=== PATIENT | female | born 1995 | race Two or more races ===

== ENCOUNTER 2021-11-10 19:40 | Emergency (ER) | payer MEDICAID ==
[~2021-11-10] VITALS: Ht 157.5 cm; Wt 68.2 kg
[2021-11-10 19:41] VITALS: BP 123/78
[2021-11-10] MEDS ORDERED: FAMOTIDINE (10MG/ML) 2ML VL IV ONE (20:00)
[2021-11-10] MEDS ORDERED: DexAMETHasone SOD PHOS 10MG/1ML VIAL INJ IV ONE (20:00)
[2021-11-10] MEDS ORDERED: diphenhdrAMINE HCL 50 MG/1 ML VL IV ONE (20:00)
== END 2021-11-10 20:42 | disposition left against medical advice (07) ==
LOC: ER 19:40
DX: L50.9 Urticaria, unspecified (principal); Z53.21 Procedure and treatment not carried out due to patient leaving prior to being seen by health care provider
CPT/HCPCS: J1100; J1200; J3490

== ENCOUNTER 2022-02-26 09:45 | Emergency (ER) | payer MEDICAID ==
[~2022-02-26] VITALS: Ht 157.5 cm; Wt 70.0 kg
[2022-02-26 10:36] VITALS: BP 156/92
[2022-02-26] MEDS ORDERED: CIPR1SUS8 OT (10:53)
== END 2022-02-26 12:14 | disposition home or self-care (01) ==
LOC: ER 09:45
DX: S62.346A Nondisplaced fracture of base of fifth metacarpal bone, right hand, initial encounter for closed fracture (principal); H72.92 Unspecified perforation of tympanic membrane, left ear; Z79.899 Other long term (current) drug therapy; Y04.2XXA Assault by strike against or bumped into by another person, initial encounter; Y93.89 Activity, other specified; Y92.89 Other specified places as the place of occurrence of the external cause; Y99.8 Other external cause status
CPT/HCPCS: 29125; 73130

== ENCOUNTER 2022-06-10 06:08 | Emergency (ER) | payer MEDICAID ==
[~2022-06-10] VITALS: Ht 154.9 cm; Wt 75.0 kg
[~2022-06-10 06:08] MED LIST: CIPR1SUS8 OT
[2022-06-10] MEDS ORDERED: METOCLOPRAMIDE HCL 5MG/ml INJ 2ml VIAL IV ONE (06:45)
[2022-06-10] MEDS ORDERED: SODIUM CHLORIDE 0.9% 1,000 ML IV ONE (06:45)
[2022-06-10] MEDS ORDERED: ACETAMINOPHEN 325 MG TAB PO ONE (06:45)
[2022-06-10] MEDS ORDERED: CYCLOBENZAPRINE HCL 10 MG TAB PO ONE ×2 (06:45→13:15)
[2022-06-10 07:21] LABS: Eosinophils # (auto) 0 10 ^3/uL (0-0.8); Eosinophils % (auto) 0.2 % (0.0-7.0); Hemoglobin 10.4 g/dL (12.2-16.2); Mean Corpuscular Hgb Conc. 32.6 g/dL (32.0-36.0); Monocytes # (auto) 0.5 10 ^3/uL (0-1.3); Red Cell Distribution Width 19.8 % (11.8-14.3)
[2022-06-10 07:23] LABS: Basophils # (auto) 0 10 ^3/uL (0-0.2); Basophils % (auto) 0.6 % (0.0-2.0); Hematocrit 31.8 % (36.0-46.0); Lymphocytes % (auto) 12.8 % (10.0-50.0); Mean Corpuscular Hemoglobin 23.5 pg (28.0-32.0); Mean Corpuscular Volume 72.3 fL (80.0-100.0); Monocytes % (auto) 6.5 % (0.0-12.0); Neutrophils # (auto) 6.3 10 ^3/uL (1.6-8.6); Neutrophils % (auto) 79.9 % (37.0-80.0); Nucleated Red Blood Cells % 0.1 %; White Blood Cell 7.9 10^3/uL (4.4-10.8)
[2022-06-10 07:41] LABS: Albumin 3.3 g/dL (3.4-5.0); Calcium 8.3 mg/dL (8.5-10.1); Potassium 3.7 mmol/L (3.5-5.1)
[2022-06-10 07:46] LABS: BUN/Creatinine Ratio 12.3 (10.0-20.0); Bilirubin, Total 0.2 mg/dL (0.2-1.0)
[2022-06-10 08:25] LABS: Urine Bacteria FEW /hpf (None Seen); Urine Blood Negative /uL (Negative); Urine Hyaline Cast FEW /lpf (0 - 2); Urine Mucus FEW (None Seen); Urine Specific Gravity 1.025 (1.001-1.035); Urine WBC 4 /hpf (0 - 5)
[2022-06-10 08:35] LABS: Amphetamine Screen, Urine NEGATIVE (NEGATIVE); Barbiturate Scree,Urine NEGATIVE (NEGATIVE); Benzodiazephine Screen, Urine NEGATIVE (NEGATIVE); Cannabinoid Screen, Urine POSITIVE (NEGATIVE); Cocaine Screen, Urine NEGATIVE (NEGATIVE); Opiate Scree,Urine NEGATIVE (NEGATIVE); Phencyclidine Screen, Urine NEGATIVE (NEGATIVE)
[2022-06-10 13:00] VITALS: BP 92/36
[2022-06-10] MEDS ORDERED: ACET-1079 PO (15:41)
[2022-06-10] MEDS ORDERED: CYCL-839 PO (15:41)
== END 2022-06-10 17:42 | disposition home or self-care (01) ==
LOC: ER 06:08 → EEVIPCON 06:08 → ER 16:30
DX: S01.01XA Laceration without foreign body of scalp, initial encounter (principal); O26.891 Other specified pregnancy related conditions, first trimester; R10.2 Pelvic and perineal pain; Z3A.09 9 weeks gestation of pregnancy; Y04.2XXA Assault by strike against or bumped into by another person, initial encounter; Y93.89 Activity, other specified; Y92.89 Other specified places as the place of occurrence of the external cause; Y99.8 Other external cause status
CPT/HCPCS: 36415; 76801; 80053; 80307; 81001; 81025; 84702; 85025; 86901; 96361; 96374; 99285; J2765; J7030

== ENCOUNTER 2022-08-18 12:34 | Emergency (ER) | payer MEDICAID ==
[~2022-08-18 12:34] MED LIST changes: +ACET-1079 PO; +CYCL-839 PO
== END 2022-08-18 14:02 | disposition left against medical advice (07) ==
LOC: ER 12:34
DX: R10.9 Unspecified abdominal pain (principal); Z53.21 Procedure and treatment not carried out due to patient leaving prior to being seen by health care provider

== ENCOUNTER 2022-11-13 22:15 | Observation (INO) | payer MEDICAID ==
[~2022-11-13] VITALS: Ht 154.9 cm; Wt 76.7 kg
[2022-11-13] MEDS ORDERED: PREN27TA7 OR (22:55)
[2022-11-13] MEDS ORDERED: ACETAMINOPHEN 325 MG TAB PO PRN (23:45)
[2022-11-13] MEDS ORDERED: TERBUTALINE SULFATE 1 MG/ML 1ML VIAL SC SCH (23:45)
[2022-11-13] MEDS ORDERED: LACTATED RINGER'S 1,000 ML IV SCH (23:45)
[2022-11-13] MEDS ORDERED: TERBUTALINE SULFATE 1 MG/ML 1ML VIAL SC ONE (23:50)
[2022-11-14] MEDS ORDERED: LACTATED RINGER'S 1,000 ML IV ONE (00:45)
[2022-11-14 02:36] LABS: Alanine Aminotransferase 20 U/L (7-40); Albumin 3.7 g/dL (3.2-4.8); Alkaline Phosphatase 100 U/L (46-116); Anion Gap 9.1 (5-15); Aspartate Aminotransferase 13 U/L (13-40); BUN/Creatinine Ratio 9.7 (10.0-20.0); Blood Urea Nitrogen 6 mg/dL (9-23); Calcium 8.3 mg/dL (8.7-10.4); Carbon Dioxide 20.9 mmol/L (20-30); Chloride 108 mmol/L (98-107); Glucose 123 mg/dL (74-106); Potassium 3.4 mmol/L (3.5-5.1); Sodium 138 mmol/L (136-145); Total Protein 5.8 g/dL (5.7-8.2)
[2022-11-14 02:42] LABS: Basophils # (auto) 0 10 ^3/uL (0-0.2); Basophils % (auto) 0.2 % (0.0-2.0); Eosinophils # (auto) 0 10 ^3/uL (0-0.8); Eosinophils % (auto) 0.3 % (0.0-7.0); Hematocrit 29.5 % (36.0-46.0); Hemoglobin 9.5 g/dL (12.2-16.2); Lymphocytes # (auto) 1.5 10 ^3/uL (0.4-5.4); Lymphocytes % (auto) 18.9 % (10.0-50.0); Mean Corpuscular Hemoglobin 24.3 pg (28.0-32.0); Mean Corpuscular Hgb Conc. 32.2 g/dL (32.0-36.0); Mean Corpuscular Volume 75.3 fL (80.0-100.0); Monocytes # (auto) 0.5 10 ^3/uL (0-1.3); Monocytes % (auto) 6.4 % (0.0-12.0); Neutrophils # (auto) 5.9 10 ^3/uL (1.6-8.6); Neutrophils % (auto) 74.2 % (37.0-80.0); Nucleated Red Blood Cells % 0.1 %; Red Blood Cells 3.92 10^6/uL (4.0-5.20); Red Cell Distribution Width 18.1 % (11.8-14.3); White Blood Cell 7.9 10^3/uL (4.4-10.8)
[2022-11-14 02:48] LABS: INR 0.97 (0.9-1.15); Partial Thromboplastin Time 26.7 SEC (24.5-34.5); Prothrombin Time 10.2 sec (9.3-11.8)
[2022-11-14 02:59] LABS: Bilirubin, Total 0.3 mg/dL (0.2-1.0)
[2022-11-14 04:10] LABS: Amphetamine Screen, Urine Neg (NEGATIVE); Barbiturate Scree,Urine Neg (NEGATIVE); Benzodiazephine Screen, Urine Neg (NEGATIVE); Cocaine Screen, Urine Neg (NEGATIVE); Opiate Scree,Urine Neg (NEGATIVE); Phencyclidine Screen, Urine Neg (NEGATIVE)
[2022-11-14 04:11] LABS: Cannabinoid Screen, Urine Neg (NEGATIVE)
[2022-11-14 04:17] LABS: Urine Amorphous Crystal FEW /hpf (None Seen); Urine Bacteria MANY /hpf (None Seen); Urine Blood Negative /uL (Negative); Urine Clarity HAZY (Clear); Urine Color Yellow (Yellow); Urine Mucus FEW (None Seen); Urine Protein, UAD 2+ (Negative); Urine Specific Gravity 1.037 (1.001-1.035); Urine WBC 3 /hpf (0 - 5)
[2022-11-15 08:06] LABS: RPR Non Reactive (Non Reactive)
[2022-11-16 23:06] LABS: Treponema pallidum Ab (FTA-Ab) Non Reactive (Non Reactive)
== END 2022-11-14 04:15 | disposition left against medical advice (07) ==
LOC: ER 22:15 → LDRP 22:30
PROVIDERS: ADMIT Obstetrics & Gynecology; ATTEND Obstetrics & Gynecology
DX: O26.893 Other specified pregnancy related conditions, third trimester (principal); R10.9 Unspecified abdominal pain; Z3A.33 33 weeks gestation of pregnancy; W19.XXXA Unspecified fall, initial encounter; Y93.89 Activity, other specified; Y92.89 Other specified places as the place of occurrence of the external cause; Y99.8 Other external cause status
CPT/HCPCS: 36415; 59025; 76805; 76815; 80053; 80307; 81001; 81002; 85025; 85610; 85730; 86592; 86850; 86900; 86901; 94760; 96360; 96361; 96372; G0378; J3105

== ENCOUNTER 2022-11-14 04:17 | Emergency (ER) | payer SELFPAY ==
[~2022-11-14] VITALS: Ht 154.9 cm; Wt 63.6 kg
[~2022-11-14 04:17] MED LIST changes: +PREN27TA7 OR
[2022-11-14 04:35] VITALS: BP 118/72; TEMP 98.3
[2022-11-14 05:08] VITALS: PULSE 76; RESP 18; O2SAT 99
== END 2022-11-14 04:53 | disposition home or self-care (01) ==
LOC: ER 04:17
DX: O26.893 Other specified pregnancy related conditions, third trimester (principal); S93.505A Unspecified sprain of left lesser toe(s), initial encounter; Z79.899 Other long term (current) drug therapy; Z3A.33 33 weeks gestation of pregnancy; W01.0XXA Fall on same level from slipping, tripping and stumbling without subsequent striking against object, initial encounter; Y93.89 Activity, other specified; Y92.89 Other specified places as the place of occurrence of the external cause; Y99.8 Other external cause status

== ENCOUNTER 2023-04-07 23:13 | Emergency (ER) | payer MEDICAID ==
[~2023-04-07] VITALS: Ht 157.5 cm; Wt 73.2 kg
[2023-04-08] MEDS ORDERED: FAMOTIDINE 20 MG TAB PO ONE (00:30)
[2023-04-08] MEDS ORDERED: DexAMETHasone SOD PHOS 10MG/1ML VIAL INJ IM ONE (00:30)
[2023-04-08] MEDS ORDERED: diphenhdrAMINE HCL 50 MG/1 ML VL IM ONE (00:30)
[2023-04-08] MEDS ORDERED: FAMO20TA10 PO (00:58)
[2023-04-08] MEDS ORDERED: PRED20TA2 PO (00:58)
[2023-04-08] MEDS ORDERED: DIPH25TA54 PO (00:58)
[2023-04-08 01:05] VITALS: BP 115/65; PULSE 62; RESP 16; TEMP 97.6; O2SAT 98
== END 2023-04-08 01:10 | disposition home or self-care (01) ==
LOC: ER 23:13
DX: L50.0 Allergic urticaria (principal); Z79.899 Other long term (current) drug therapy
CPT/HCPCS: 96372; 99284; J1100; J1200

== ENCOUNTER 2023-10-14 12:00 | Emergency (ER) | payer MEDICAID ==
[~2023-10-14] VITALS: Ht 154.9 cm; Wt 74.8 kg
[~2023-10-14 12:00] MED LIST changes: +DIPH25TA54 PO; +FAMO20TA10 PO; +PRED20TA2 PO
[2023-10-14 13:05] VITALS: BP 111/66; PULSE 97; RESP 18; TEMP 99.2; O2SAT 97
[2023-10-14] MEDS: KETOROLAC TROMETH 30 MG/ML 1ML VIAL IM ONE (13:55)
[2023-10-14] MEDS: DexAMETHasone SOD PHOS 10MG/1ML VIAL INJ IM ONE (13:55)
[2023-10-14 14:19] LABS: Rapid Strep A Screen-Throat Positive
[2023-10-14] MEDS ORDERED: PENI500T2 PO (14:28)
[2023-10-14] MEDS ORDERED: IBUP-1455 PO (14:28)
== END 2023-10-14 14:46 | disposition home or self-care (01) ==
LOC: ER 12:00
DX: J02.0 Streptococcal pharyngitis (principal); R51.9 Headache, unspecified
CPT/HCPCS: 87880; 96372; 99284; J1100; J1885